=== PATIENT | female | born 1935 | race Caucasian/White ===

== ENCOUNTER 2016-07-23 12:26 | Outpatient (CLI) | payer MEDICARE, OTHER ==
[2016-07-23 14:25] LABS: #Basophils 0.1 thou/uL (0.0-0.2); #Eosinphils 0.2 thou/uL (0.0-0.7); #Lymphocytes 2.5 thou/uL (1.20-3.40); #Monocytes 0.5 thou/uL (0.11-0.59); #Neutrophils 2.9 thou/uL (1.40-6.50); %Basophils 1.6 % (0.0-1.0); %Eosinophils 3.4 % (0.0-10.0); %Lymphocytes 40.6 % (21.0-51.0); %Monocytes 7.3 % (0.0-10.0); Hematocrit 40.6 % (36.0-47.0); Mean Platelet Volume 9.1 fL (7.4-10.4); Red Blood Cell (RBC) Count 4.11 mill/uL (4.20-5.40); White Blood Cell (WBC) Count 6.1 thou/uL (4.8-10.8)
[2016-07-23 14:35] LABS: ALT (SGPT) 20 U/L (0-55); AST (SGOT) 25 U/L (5-34); Alkaline Phosphatase 58 U/L (40-150); Anion Gap 14 mmol/L (10-20); BUN (Urea Nitrogen) 21 mg/dL (9.8-20.1); Bilirubin, Total 0.5 mg/dL (0.2-1.2); Calc. Creatinine Clearance 0 mL/min (70-130); Calcium 9.1 mg/dL (7.8-10.44); Carbon Dioxide 25 mmol/L (23-31); Chloride 105 mmol/L (98-107); Estimated GFR-MDRD 60; Globulin 2.1 g/dL (2.4-3.5); Protein, Total 6.4 g/dL (5.8-8.1)
== END 2016-07-23 12:27 ==
LOC: NAVSJIPCSP 12:26
PROVIDERS: ATTEND Internal Medicine
DX: I35.9 Nonrheumatic aortic valve disorder, unspecified (principal)
CPT/HCPCS: 36415; 80053; 83880; 84443; 85025; G0103

== ENCOUNTER 2016-08-12 10:03 | Outpatient (CLI) | payer MEDICARE, OTHER | END 2016-08-12 10:04 | disposition home or self-care (01) | LOC: NAV EKG 10:03 | PROVIDERS: ATTEND Internal Medicine | DX: I35.9 Nonrheumatic aortic valve disorder, unspecified (principal) | CPT/HCPCS: 93005 ==

== ENCOUNTER 2017-01-29 11:46 | Outpatient (CLI) | payer MEDICARE, OTHER | END 2017-01-29 11:47 | disposition home or self-care (01) | LOC: NAV ULT 11:46 | PROVIDERS: ATTEND Internal Medicine | DX: I35.9 Nonrheumatic aortic valve disorder, unspecified (principal); I35.2 Nonrheumatic aortic (valve) stenosis with insufficiency; I07.1 Rheumatic tricuspid insufficiency | CPT/HCPCS: 93306 ==

== ENCOUNTER 2017-07-17 14:56 | Emergency (ER) | payer MEDICARE, OTHER ==
[2017-07-17 15:50] LABS: #Eosinphils 0.1 thou/uL (0.0-0.7); #Lymphocytes 0.7 thou/uL (1.20-3.40); #Monocytes 0.3 thou/uL (0.11-0.59); #Neutrophils 3.7 thou/uL (1.40-6.50); %Basophils 0.4 % (0.0-1.0); %Eosinophils 1.9 % (0.0-10.0); %Lymphocytes 14.5 % (21.0-51.0); %Monocytes 6.3 % (0.0-10.0); %Neutrophils 76.9 % (42.0-75.0); Mean Corpuscular Hemoglobin 30.4 pg (27.0-31.0); Mean Corpuscular Volume 95.2 fl (81.0-99.0); Mean Platelet Volume 9.7 fL (7.4-10.4); Platelet Count 167 thou/uL (130-400); RBC Distribution Width 12.6 % (11.5-14.5); Red Blood Cell (RBC) Count 4.29 mill/uL (4.20-5.40); White Blood Cell (WBC) Count 4.8 thou/uL (4.8-10.8)
[2017-07-17 16:07] LABS: ALT (SGPT) 19 U/L (8-55); AST (SGOT) 27 U/L (5-34); Albumin 4.2 g/dL (3.4-4.8); Alkaline Phosphatase 62 U/L (40-150); Anion Gap 13 mmol/L (10-20); BUN (Urea Nitrogen) 17 mg/dL (9.8-20.1); Bilirubin, Total 0.5 mg/dL (0.2-1.2); Calc. Creatinine Clearance 0 mL/min (70-130); Calcium 8.8 mg/dL (7.8-10.44); Carbon Dioxide 27 mmol/L (23-31); Chloride 100 mmol/L (98-107); Estimated GFR-MDRD 58; Globulin 2.7 g/dL (2.4-3.5); Glucose 104 mg/dL (83-110); Potassium 3.3 mmol/L (3.5-5.1); Protein, Total 6.9 g/dL (6.0-8.3); Sodium 137 mmol/L (136-145)
[2017-07-17 16:14] LABS: CKMB 1.4 ng/mL (0-6.6); Troponin I Less than 0.010 ng/mL (< 0.028)
--- NOTE | 2017-07-17 16:25 | RAD ---
CHEST TWO VIEWS: History: Chest pain. FINDINGS: No comparison. Cardiac silhouette is upper limits of normal in size. Pulmonary vasculature is unremar kable. Mediastinum is midline with aortic calcification. Lungs are hyperinflated. There is no conflue nt airspace consolidation, pneumothorax, or pleural fluid evident. Dystrophic calcification projects over the right rotator cuff. ekg monitor tech leads overlie the chest. IMPRESSION: 1. COPD. 2. Atherosclerosis. 3. Calcified tendinosis. POS: [facility]
[2017-07-17] MEDS ORDERED: Potassium Chloride 20 MEQ TAB ONE (16:51)
== END 2017-07-17 18:15 | disposition short-term general hospital (02) ==
LOC: NAV ERS 14:56
DX: R07.89 Other chest pain (principal); E87.6 Hypokalemia; I10 Essential (primary) hypertension; Z79.82 Long term (current) use of aspirin; Z79.899 Other long term (current) drug therapy
CPT/HCPCS: 71020; 80053; 82553; 83880; 84484; 85025; 93005

== ENCOUNTER 2017-11-25 16:05 | Outpatient (CLI) | payer MEDICARE, OTHER ==
--- NOTE | 2017-11-25 18:03 | RAD ---
TWO VIEWS OF THE CHEST: 11/25/17 COMPARISON: 11/16/17 HISTORY: Nonrheumatic heart valve disorder. FINDINGS: Two views of the chest shows an enlarged cardiomediastinal silhouette. There is a moderate left and a mild right pleural effusion. The patient is status post cardiac valve replacement. Degenerative peterson ges are seen in the spine. IMPRESSION: 1. Cardiomegaly. 2. Moderate left and mild right pleural effusions. POS: [facility]
== END 2017-11-25 16:06 | disposition home or self-care (01) ==
LOC: NAV RAD 16:05
PROVIDERS: ATTEND Internal Medicine
DX: I35.9 Nonrheumatic aortic valve disorder, unspecified (principal); I51.7 Cardiomegaly; J90 Pleural effusion, not elsewhere classified
CPT/HCPCS: 71046

== ENCOUNTER 2017-12-01 14:14 | Emergency (ER) | payer MEDICARE, OTHER ==
[2017-12-01] MEDS ORDERED: Furosemide 40 MG/4 ML VIAL ONE (14:59)
[2017-12-01 15:07] LABS: #Basophils 0.1 thou/uL (0.0-0.2); #Eosinphils 0.3 thou/uL (0.0-0.7); #Lymphocytes 1.1 thou/uL (1.20-3.40); #Monocytes 0.7 thou/uL (0.11-0.59); #Neutrophils 6.5 thou/uL (1.40-6.50); %Eosinophils 3.5 % (0.0-10.0); %Lymphocytes 12.8 % (21.0-51.0); %Monocytes 7.7 % (0.0-10.0); Hemoglobin 10.4 g/dL (12.0-16.0); Mean Corpuscular HGB CONC 30.5 g/dL (32.0-36.0); Mean Corpuscular Hemoglobin 29.4 pg (27.0-31.0); Mean Corpuscular Volume 96.7 fl (81.0-99.0); Mean Platelet Volume 7.2 fL (7.4-10.4); Platelet Count 272 thou/uL (130-400); RBC Distribution Width 15.8 % (11.5-14.5); Red Blood Cell (RBC) Count 3.53 mill/uL (4.20-5.40); White Blood Cell (WBC) Count 8.7 thou/uL (4.8-10.8)
[2017-12-01 15:12] LABS: INR-International Normal Ratio 1.7; PTT 40.3 SEC (22.9-36.1); Prothrombin Time 20.5 SEC (12.0-14.7)
[2017-12-01 15:22] LABS: CKMB 5.3 ng/mL (0-6.6); Troponin I 0.234 ng/mL (< 0.028)
--- NOTE | 2017-12-01 15:26 | RAD ---
PORTABLE CHEST: Date: 12/01/17 HISTORY: Dyspnea. COMPARISON: 11/25/17. FINDINGS: There is a large left pleural effusion with only a small amount of aerated lung in the left upper api alin region. There is a moderate right pleural effusion. Cardiomegaly and postop sternotomy change. Va scular markings upper normal. IMPRESSION: Cardiomegaly with bilateral effusions, larger on the left, not significantly changed when compared to 11/25/17. POS: [facility]
[2017-12-01 15:31] LABS: ALT (SGPT) 49 U/L (8-55); AST (SGOT) 32 U/L (5-34); Albumin 3.5 g/dL (3.4-4.8); Alkaline Phosphatase 204 U/L (40-150); Anion Gap 15 mmol/L (10-20); BUN (Urea Nitrogen) 35 mg/dL (9.8-20.1); Bilirubin, Total 0.8 mg/dL (0.2-1.2); Calc. Creatinine Clearance 0 mL/min (70-130); Calcium 8.7 mg/dL (7.8-10.44); Carbon Dioxide 26 mmol/L (23-31); Chloride 100 mmol/L (98-107); Estimated GFR-MDRD 47; Globulin 2.7 g/dL (2.4-3.5); Glucose 118 mg/dL (83-110); Potassium 3.1 mmol/L (3.5-5.1); Protein, Total 6.2 g/dL (6.0-8.3); Sodium 138 mmol/L (136-145)
[2017-12-01] MEDS ORDERED: Potassium Chloride 20 MEQ TAB ONE (15:51)
== END 2017-12-01 16:47 | disposition short-term general hospital (02) ==
LOC: NAV ERS 14:14
DX: I11.0 Hypertensive heart disease with heart failure (principal); I50.9 Heart failure, unspecified; J90 Pleural effusion, not elsewhere classified; E87.6 Hypokalemia; Z79.82 Long term (current) use of aspirin; Z79.899 Other long term (current) drug therapy
CPT/HCPCS: 51702; 71045; 82553; 83880; 84484; 85025; 85610; 85730; 93005; 96374; J1940

== ENCOUNTER 2018-01-28 11:34 | Outpatient (CLI) | payer MEDICARE, OTHER ==
--- NOTE | 2018-01-28 14:01 | RAD ---
PA AND LATERAL CHEST: Date: 01/28/18 INDICATION: Shortness of breath and history of recent heart surgery. COMPARISON: Prior study dated 12/12/17. FINDINGS: Moderate left and small right pleural effusion persists. Cardiomegaly is similar. Pulmonary vasculatu re appears within normal limits. Midline sternotomy changes are similar appearing. Focus of calcific tendinosis is again seen overlying the right greater tuberosity. IMPRESSION: Stable exam. POS: [facility]
== END 2018-01-28 11:35 | disposition home or self-care (01) ==
LOC: NAV RAD 11:34
PROVIDERS: ATTEND Internal Medicine
DX: R06.02 Shortness of breath (principal)
CPT/HCPCS: 71046

== ENCOUNTER 2018-05-06 16:08 | Outpatient (CLI) | payer MEDICARE, OTHER ==
--- NOTE | 2018-05-06 17:37 | RAD ---
RADIOGRAPH CHEST 2 VIEWS: Date: 05/06/18 Time: 1606 HOURS HISTORY: 82-year-old female with hypertension. COMPARISON: 01/28/18. FINDINGS: Sternotomy wires. The previously demonstrated left pleural effusion that was occupying approximately 50% volume of left hemithorax, has decreased to approximately 20-30% volume of the left hemithorax. A gain noted is the prosthetic cardiac valve. The left upper lobe and the visualized portions of the ri ght lung appear to be grossly clear. Borderline or mild cardiomegaly. No right-sided pleural effusion . No pneumothorax. There is no pulmonary edema. IMPRESSION: 1. Interval decrease in volume of the left pleural effusion. Currently, there is a small to moderate size left pleural effusion which obscures the left base. 2. Mild cardiomegaly. 3. Prosthetic cardiac valve. JN [] POS: [facility]
== END 2018-05-06 16:09 | disposition home or self-care (01) ==
LOC: NAV RAD 16:08
PROVIDERS: ATTEND Internal Medicine
DX: I10 Essential (primary) hypertension (principal); J90 Pleural effusion, not elsewhere classified; I51.7 Cardiomegaly; Z95.2 Presence of prosthetic heart valve
CPT/HCPCS: 71046